=== PATIENT | female | born 1965 | race Caucasian/White ===

== ENCOUNTER 2017-10-14 08:05 | Inpatient (IN) | payer MEDICAID ==
[~2017-10-14] VITALS: Ht 157.5 cm; Wt 48.2 kg
[~2017-10-14 08:05] MED LIST: CEFD300C37 PO
[2017-10-14 08:53] LABS: MEAN CORPUSCULAR HEMOGLOBIN 30.1 pg (27.0-34.8); MEAN CORPUSCULAR HGB CONC 33.6 g/dL (32.4-35.8); MEAN CORPUSCULAR VOLUME 89.7 fL (80-100); MEAN PLATELET VOLUME 8.3 fL (7.4-10.4); PLATELET COUNT 337 x10^3/uL (130-400); RED CELL DISTRIBUTION WIDTH 14.3 % (9.6-15.2)
[2017-10-14] MEDS ORDERED: SODIUM CHLORIDE 0.9% 1,000ML IVBOLUS ONE (09:00)
[2017-10-14 09:06] LABS: ALANINE AMINOTRANSFERASE 15 U/L (12-78); ANION GAP 8 mmol/L (5-15); CALCIUM 8.4 mg/dL (8.5-10.1); CHLORIDE 100 mmol/L (98-107); CREATININE 1.26 mg/dL (0.55-1.02)
[2017-10-14 09:09] LABS: ALKALINE PHOSPHATASE 105 U/L (45-117); BILIRUBIN,TOTAL 0.3 mg/dL (0.2-1.0); TOTAL PROTEIN 8.3 g/dL (6.4-8.2)
[2017-10-14 09:13] LABS: BASOPHILS # (AUTO) 0.08 x10^3/uL (0-0.1); BASOPHILS % (AUTO) 1 % (0-1); EOSINOPHILS # (AUTO) 0.09 x10^3/uL (0-0.4); EOSINOPHILS % (AUTO) 1 % (1-7); LYMPHOCYTES # (AUTO) 2.13 x10^3/uL (1-3.4); LYMPHOCYTES % (AUTO) 13 % (22-44); MD SCAN; MONOCYTES # (AUTO) 1.33 x10^3/uL (0.2-0.8); MONOCYTES % (AUTO) 8 % (2-9); NEUTROPHILS # (AUTO) 12.54 x10^3/uL (1.8-6.8); NEUTROPHILS % (AUTO) 78 % (42-75)
[2017-10-14] MEDS ORDERED: OMNIPAQUE 350 MG/ML, 100ML BOTTLE ONE (10:13)
[2017-10-14] MEDS ORDERED: ONDANSETRON 2MG/ML, 2ML IVPush PRN (11:00)
[2017-10-14] MEDS ORDERED: ACETAMINOPHEN 325 MG TABLET PO PRN (11:00)
[2017-10-14] MEDS ORDERED: ONDANSETRON ODT 4 MG PO PRN (11:00)
[2017-10-14] MEDS ORDERED: hydrALAzine 20 MG/ML, 1ML IVPush PRN (11:00)
[2017-10-14 11:08] VITALS: BP 146/94
[2017-10-14 13:04] VITALS: BP 139/85
[2017-10-14] MEDS: ENOXAPARIN 40 MG/0.4 ML SQ SCH (15:42)
[2017-10-14] MEDS: SODIUM CHLORIDE 0.9% 1,000 ML IV SCH (15:42)
[2017-10-14] MEDS: METHADONE 10 MG TABLET PO PRN ×2 (15:43→23:08)
[2017-10-14] MEDS: CLINDAMYCIN PMX 900MG/50ML 50 ML IV SCH ×2 (15:43→21:44)
[2017-10-14] MEDS: NICOTINE 21 MG/24 HR PATCH.TD24 TD SCH (15:43)
[2017-10-14 19:38] VITALS: BP 156/92
[2017-10-15] MEDS: SODIUM CHLORIDE 0.9% 1,000 ML IV SCH ×3 (01:13→17:30)
[2017-10-15 02:16] VITALS: BP 162/93
[2017-10-15] MEDS: METHADONE 10 MG TABLET PO PRN ×2 (05:09→20:39)
[2017-10-15 05:24] LABS: MEAN CORPUSCULAR HEMOGLOBIN 30.4 pg (27.0-34.8); MEAN CORPUSCULAR HGB CONC 33.5 g/dL (32.4-35.8); MEAN CORPUSCULAR VOLUME 90.6 fL (80-100); MEAN PLATELET VOLUME 8.1 fL (7.4-10.4); PLATELET COUNT 376 x10^3/uL (130-400); RED BLOOD COUNT 3.96 x10^6/uL (3.82-5.3); RED CELL DISTRIBUTION WIDTH 14.7 % (9.6-15.2)
[2017-10-15 05:37] LABS: ANION GAP 6 mmol/L (5-15); CALCIUM 8.3 mg/dL (8.5-10.1); CHLORIDE 102 mmol/L (98-107)
[2017-10-15 05:41] LABS: ALANINE AMINOTRANSFERASE 11 U/L (12-78); ALBUMIN 2.3 g/dL (3.4-5.0); ALKALINE PHOSPHATASE 83 U/L (45-117); BILIRUBIN,TOTAL 0.4 mg/dL (0.2-1.0); CREATININE 1.01 mg/dL (0.55-1.02); TOTAL PROTEIN 6.9 g/dL (6.4-8.2)
[2017-10-15 06:12] LABS: BASOPHILS # (AUTO) 0.28 x10^3/uL (0-0.1); BASOPHILS % (AUTO) 2 % (0-1); EOSINOPHILS # (AUTO) 0.16 x10^3/uL (0-0.4); EOSINOPHILS % (AUTO) 1 % (1-7); LYMPHOCYTES # (AUTO) 1.98 x10^3/uL (1-3.4); LYMPHOCYTES % (AUTO) 11 % (22-44); MD SCAN; MONOCYTES # (AUTO) 1.45 x10^3/uL (0.2-0.8); MONOCYTES % (AUTO) 8 % (2-9); NEUTROPHILS # (AUTO) 13.91 x10^3/uL (1.8-6.8); NEUTROPHILS % (AUTO) 78 % (42-75)
[2017-10-15 07:40] VITALS: BP 125/75
[2017-10-15] MEDS: CLINDAMYCIN PMX 900MG/50ML 50 ML IV SCH ×2 (08:46→17:30)
[2017-10-15 11:59] VITALS: BP 115/72
[2017-10-15] MEDS: ENOXAPARIN 40 MG/0.4 ML SQ SCH (16:00)
[2017-10-15] MEDS ORDERED: MIDAZOLAM 1 MG/ML, 2ML ONE (19:13)
[2017-10-15] MEDS ORDERED: FENTANYL PF 250 MCG/5ML ONE (19:14)
[2017-10-15] MEDS ORDERED: KETAMINE 10 MG/ML, 20ML ONE (19:24)
[2017-10-15] MEDS ORDERED: DEXAMETHASONE 4 MG/ML, 1ML ONE (19:33)
[2017-10-15] MEDS ORDERED: LIDOCAINE 4%, 4 ML SYR/CANN TP ONE (19:33)
[2017-10-15] MEDS ORDERED: ONDANSETRON 2MG/ML, 2ML ONE (19:33)
[2017-10-15] MEDS ORDERED: PROPOFOL 10 MG/ML, 20ML ONE (19:33)
[2017-10-15] MEDS ORDERED: SUCCINYLCHOLINE 20 MG/ML, 10ML ONE (19:33)
[2017-10-15] MEDS ORDERED: FENTANYL PF 100 MCG/2ML ONE (20:34)
[2017-10-15] MEDS: FENTANYL PF 100 MCG/2ML IV PRN ×2 (20:38→20:42)
[2017-10-15] MEDS ORDERED: MEPERIDINE/PF 25MG/0.5ML IVPush PRN (21:00)
[2017-10-15] MEDS ORDERED: MORPHINE SULFATE 4 MG/ML, 1ML IVPush PRN (21:00)
[2017-10-15] MEDS ORDERED: ACETAMINOPHEN 325 MG TABLET PO PRN (21:00)
[2017-10-15] MEDS ORDERED: HYDROmorphone 1 MG/ML, 1ML IV PRN (21:00)
[2017-10-15] MEDS ORDERED: PROMETHAZINE 25 MG/ML, 1ML IV PRN (21:00)
[2017-10-15] MEDS ORDERED: ONDANSETRON ODT 8 MG PO PRN (21:00)
[2017-10-15] MEDS ORDERED: ONDANSETRON 2MG/ML, 2ML IV PRN (21:00)
[2017-10-15] MEDS ORDERED: OXYcodone 5 MG/5 ML ORAL.SOL UDC PO PRN (21:00)
[2017-10-15 21:03] VITALS: BP 131/87
[2017-10-15] MEDS: NICOTINE 21 MG/24 HR PATCH.TD24 TD SCH (21:20)
[2017-10-16] MEDS: CLINDAMYCIN PMX 900MG/50ML 50 ML IV SCH ×2 (01:08→09:28)
[2017-10-16 01:18] VITALS: BP 107/67
[2017-10-16] MEDS: SODIUM CHLORIDE 0.9% 1,000 ML IV SCH ×3 (04:32→22:28)
[2017-10-16] MEDS: METHADONE 10 MG TABLET PO PRN ×4 (04:32→22:28)
[2017-10-16 06:09] LABS: ALBUMIN 2.2 g/dL (3.4-5.0); ANION GAP 6 mmol/L (5-15); CALCIUM 8.5 mg/dL (8.5-10.1); CHLORIDE 101 mmol/L (98-107); CREATININE 0.97 mg/dL (0.55-1.02)
[2017-10-16 06:12] LABS: MEAN CORPUSCULAR HEMOGLOBIN 30.5 pg (27.0-34.8); MEAN CORPUSCULAR HGB CONC 33.1 g/dL (32.4-35.8); MEAN CORPUSCULAR VOLUME 92.2 fL (80-100); MEAN PLATELET VOLUME 8.2 fL (7.4-10.4); PLATELET COUNT 361 x10^3/uL (130-400); RED BLOOD COUNT 3.87 x10^6/uL (3.82-5.3); RED CELL DISTRIBUTION WIDTH 14.7 % (9.6-15.2)
[2017-10-16 06:41] LABS: BASOPHILS # (AUTO) 0.08 x10^3/uL (0-0.1); BASOPHILS % (AUTO) 0 % (0-1); EOSINOPHILS % (AUTO) 0 % (1-7); LYMPHOCYTES # (AUTO) 1.22 x10^3/uL (1-3.4); LYMPHOCYTES % (AUTO) 6 % (22-44); MD SCAN; MONOCYTES # (AUTO) 1.17 x10^3/uL (0.2-0.8); MONOCYTES % (AUTO) 6 % (2-9); NEUTROPHILS # (AUTO) 17.14 x10^3/uL (1.8-6.8); NEUTROPHILS % (AUTO) 87 % (42-75)
[2017-10-16 07:53] VITALS: BP 118/74
[2017-10-16] MEDS ORDERED: VANCOMYCIN PER PHARMACY MC PRN (11:00)
[2017-10-16] MEDS ORDERED: VANCOMYCIN 900 MG in SODIUM CHLORIDE 0.9% 250 ML IV SCH (11:30)
[2017-10-16] MEDS ORDERED: PHARMACOKINETIC MONITORING MC PRN (11:30)
[2017-10-16 13:37] VITALS: BP 115/71
[2017-10-16] MEDS: ENOXAPARIN 40 MG/0.4 ML SQ SCH (16:26)
[2017-10-16] MEDS: NICOTINE 21 MG/24 HR PATCH.TD24 TD SCH (20:42)
[2017-10-16 20:52] VITALS: BP 116/65
[2017-10-17 00:22] VITALS: BP 140/85
[2017-10-17 05:23] LABS: BASOPHILS # (AUTO) 0.06 x10^3/uL (0-0.1); BASOPHILS % (AUTO) 0 % (0-1); EOSINOPHILS # (AUTO) 0.17 x10^3/uL (0-0.4); EOSINOPHILS % (AUTO) 1 % (1-7); LYMPHOCYTES # (AUTO) 2.43 x10^3/uL (1-3.4); LYMPHOCYTES % (AUTO) 17 % (22-44); MD NO; MEAN CORPUSCULAR HEMOGLOBIN 30.6 pg (27.0-34.8); MEAN CORPUSCULAR HGB CONC 33.5 g/dL (32.4-35.8); MEAN CORPUSCULAR VOLUME 91.6 fL (80-100); MEAN PLATELET VOLUME 8.3 fL (7.4-10.4); MONOCYTES # (AUTO) 1.15 x10^3/uL (0.2-0.8); MONOCYTES % (AUTO) 8 % (2-9); NEUTROPHILS # (AUTO) 10.18 x10^3/uL (1.8-6.8); NEUTROPHILS % (AUTO) 73 % (42-75); PLATELET COUNT 387 x10^3/uL (130-400); RED BLOOD COUNT 3.48 x10^6/uL (3.82-5.3); RED CELL DISTRIBUTION WIDTH 14.7 % (9.6-15.2)
[2017-10-17 05:31] LABS: ALBUMIN 2.2 g/dL (3.4-5.0); ANION GAP 7 mmol/L (5-15); CALCIUM 8.3 mg/dL (8.5-10.1); CHLORIDE 105 mmol/L (98-107); CREATININE 1.03 mg/dL (0.55-1.02)
[2017-10-17] MEDS: SODIUM CHLORIDE 0.9% 1,000 ML IV SCH ×2 (06:22→15:07)
[2017-10-17 07:48] VITALS: BP 135/78
[2017-10-17] MEDS: METHADONE 10 MG TABLET PO PRN ×2 (10:04→21:42)
[2017-10-17 13:18] VITALS: BP 152/88
[2017-10-17] MEDS ORDERED: VANCOMYCIN PMX 1GM/200ML 200 ML IV SCH (15:30)
[2017-10-17] MEDS: ENOXAPARIN 40 MG/0.4 ML SQ SCH (16:06)
[2017-10-17 19:50] VITALS: BP 135/84
[2017-10-17] MEDS: NICOTINE 21 MG/24 HR PATCH.TD24 TD SCH (21:42)
[2017-10-18 01:59] VITALS: BP 138/79
[2017-10-18 07:25] VITALS: BP 137/88
[2017-10-18] MEDS: SODIUM CHLORIDE 0.9% 1,000 ML IV SCH ×4 (07:54→20:50)
[2017-10-18] MEDS: METHADONE 10 MG TABLET PO PRN (11:56)
[2017-10-18] MEDS ORDERED: VANCOMYCIN PER PHARMACY MC PRN (12:30)
[2017-10-18] MEDS: VANCOMYCIN PMX 1GM/200ML 200 ML IV SCH (13:27)
[2017-10-18 13:35] VITALS: BP 116/76
[2017-10-18] MEDS: ENOXAPARIN 40 MG/0.4 ML SQ SCH (16:27)
[2017-10-18 19:03] VITALS: BP 139/86
[2017-10-18] MEDS: NICOTINE 21 MG/24 HR PATCH.TD24 TD SCH (20:50)
[2017-10-19] MEDS: METHADONE 10 MG TABLET PO PRN (00:55)
[2017-10-19] MEDS: VANCOMYCIN PMX 1GM/200ML 200 ML IV SCH (00:55)
[2017-10-19 01:50] VITALS: BP 126/82
[2017-10-19 08:39] VITALS: BP 120/73
[2017-10-19] MEDS ORDERED: LEVO750T26 PO (10:23)
[2017-10-19] MEDS ORDERED: DOXY100C2 PO (10:23)
== END 2017-10-19 12:04 | disposition home or self-care (01) | DRG 853 ==
LOC: ED 09:01 → EDIP 10:14 → 3NE 10:57
PROVIDERS: ADMIT Hospitalist; ATTEND Hospitalist
PROC: 0JBL0ZZ Excision of Right Upper Leg Subcutaneous Tissue and Fascia, Open Approach (ICD-10-PCS; 2017-10-15)
PROC: 0JBM0ZZ Excision of Left Upper Leg Subcutaneous Tissue and Fascia, Open Approach (ICD-10-PCS; principal; 2017-10-15 16:00)
DX: A41.9 Sepsis, unspecified organism (principal); E43 Unspecified severe protein-calorie malnutrition; N17.9 Acute kidney failure, unspecified; L02.415 Cutaneous abscess of right lower limb; F11.20 Opioid dependence, uncomplicated; I50.32 Chronic diastolic (congestive) heart failure; Z68.1 Body mass index [BMI] 19.9 or less, adult; L03.116 Cellulitis of left lower limb; L03.115 Cellulitis of right lower limb; L02.416 Cutaneous abscess of left lower limb; Z88.0 Allergy status to penicillin; Z59.0 Homelessness
CPT/HCPCS: 36415; 72190; 72193; 80048; 80053; 80356; 80361; 82040; 83735; 84100; 85025; 86704; 86705; 86706; 86708; 86709; 86803; 87040; 87070; 87075; 87077; 87147; 87181; 87186; 87205; 87340; 87521; 93306; 96365; 99285; G0378; J1100; J1650; J2250; J2405; J2704; J3010; J3370; Q9967; G0480; J0330; J7030; J7050

== ENCOUNTER 2018-04-03 11:50 | Emergency (ER) | payer MEDICAID ==
[~2018-04-03] VITALS: Ht 157.5 cm; Wt 46.9 kg
[~2018-04-03 11:50] MED LIST changes: +DOXY100C2 PO; +LEVO750T26 PO
[2018-04-03] MEDS ORDERED: CLINDAMYCIN PMX 900MG/50ML 50 ML IV ONE (12:30)
[2018-04-03] MEDS ORDERED: SODIUM CHLORIDE FLUSH 10ML SYR IVF ONE (12:30)
[2018-04-03] MEDS ORDERED: LIDOCAINE-MPF 1%, 5ML INFIL ONE (12:30)
[2018-04-03 13:06] LABS: MEAN CORPUSCULAR HEMOGLOBIN 29.5 pg (27.0-34.8); MEAN CORPUSCULAR HGB CONC 33.6 g/dL (32.4-35.8); MEAN CORPUSCULAR VOLUME 87.9 fL (80-100); MEAN PLATELET VOLUME 8.3 fL (7.4-10.4); PLATELET COUNT 429 x10^3/uL (130-400); RED CELL DISTRIBUTION WIDTH 14.8 % (9.6-15.2)
[2018-04-03 13:13] LABS: ALBUMIN 2.7 g/dL (3.4-5.0); ANION GAP 7 mmol/L (5-15); CALCIUM 8.9 mg/dL (8.5-10.1); CHLORIDE 96 mmol/L (98-107); CREATININE 1.16 mg/dL (0.55-1.02)
[2018-04-03 13:45] LABS: MD YES
[2018-04-03 13:50] LABS: EOS#(MANUAL) 0.18 x10^3/uL (0.0-0.4); EOS% (MANUAL) 1 % (1-7); LYMPH#(MANUAL) 2.16 x10^3/uL (1-3.4); LYMPHS% (MANUAL) 12 % (22-44); MONOS#(MANUAL) 1.62 x10^3/uL (0.3-2.7); MONOS% (MANUAL) 9 % (2-9); SEG#(MANUAL) 14.04 x10^3/uL (1.8-6.8); SEGS% (MANUAL) 78 % (42-75)
[2018-04-03 13:51] LABS: <PLATELET ESTIMATE> INCREASED; ANISOCYTOSIS 1+; LARGE PLATELETS 1+; TOXIC GRAN 1+
--- NOTE | 2018-04-03 14:52 | NUR ---
TO ROOM FROM LOBBY. NAD.
[2018-04-03] MEDS ORDERED: LIDOCAINE 1%-EPI 1:100K, 20ML INFIL ONE (15:00)
[2018-04-03] MEDS ORDERED: LIDOCAINE-MPF 1%, 5ML ONE (15:27)
[2018-04-03] MEDS ORDERED: CLINDAMYCIN 150 MG/ML, 6ML ONE (15:27)
--- NOTE | 2018-04-03 15:37 | NUR ---
GIGI PA AT BEDSIDE PERFORMING I&D.
[2018-04-03 16:52] VITALS: BP 148/87
== END 2018-04-03 16:55 | disposition home or self-care (01) ==
LOC: ED 16:28
DX: L02.414 Cutaneous abscess of left upper limb (principal); F11.20 Opioid dependence, uncomplicated; Z88.0 Allergy status to penicillin
CPT/HCPCS: 10060; 36415; 80048; 82040; 85025; 87040; 96372; 99283

== ENCOUNTER 2018-08-13 18:34 | Emergency (ER) | payer MEDICAID ==
[~2018-08-13] VITALS: Ht 157.5 cm; Wt 45.1 kg
--- NOTE | 2018-08-13 19:39 | NUR ---
PT TO ED FOR BLE CELLULITIS AND RIGHT HIP CELLULITIS. PT STATES SHE WAS ON ABX (SULFAMETHOXAZOLE-TMP DS TABLET, 1 TAB BID FOR 10 DAYS, FIRST FILLED 08/07/2018) AND S/S WERE IMPROVING UNTIL PURSE CONTAINING MEDICATION WAS STOLEN YESTERDAY. PT CONNECTED TO MONITORS. VSS. LABS AND BC X2 DRAWN. AWAITING RESULTS.
[2018-08-13 19:44] VITALS: BP 149/94
[2018-08-13 19:46] LABS: BASOPHILS # (AUTO) 0.03 x10^3/uL (0-0.1); BASOPHILS % (AUTO) 0 % (0-1); EOSINOPHILS # (AUTO) 0.09 x10^3/uL (0-0.4); EOSINOPHILS % (AUTO) 1 % (1-7); LYMPHOCYTES # (AUTO) 2.09 x10^3/uL (1-3.4); LYMPHOCYTES % (AUTO) 19 % (22-44); MD NO; MEAN CORPUSCULAR HEMOGLOBIN 30.1 pg (27.0-34.8); MEAN CORPUSCULAR HGB CONC 33.1 g/dL (32.4-35.8); MEAN CORPUSCULAR VOLUME 90.9 fL (80-100); MONOCYTES # (AUTO) 0.83 x10^3/uL (0.2-0.8); MONOCYTES % (AUTO) 8 % (2-9); NEUTROPHILS # (AUTO) 7.69 x10^3/uL (1.8-6.8); NEUTROPHILS % (AUTO) 72 % (42-75); PLATELET COUNT 397 x10^3/uL (130-400); RED CELL DISTRIBUTION WIDTH 16.1 % (9.6-15.2)
[2018-08-13 20:03] LABS: ALBUMIN 3.3 g/dL (3.4-5.0); ANION GAP 2 mmol/L (5-15); CALCIUM 9.3 mg/dL (8.5-10.1); CHLORIDE 100 mmol/L (98-107)
== END 2018-08-13 21:10 | disposition home or self-care (01) ==
LOC: ED 21:04
DX: L03.116 Cellulitis of left lower limb (principal); F17.200 Nicotine dependence, unspecified, uncomplicated; Z72.9 Problem related to lifestyle, unspecified
CPT/HCPCS: 36415; 80048; 82040; 83605; 85025; 87040; 99283

== ENCOUNTER 2019-11-12 03:44 | Inpatient (IN) | payer MEDICAID ==
[~2019-11-12] VITALS: Ht 157.5 cm; Wt 48.5 kg
[2019-11-12] MEDS ORDERED: SODIUM CHLORIDE 0.9% 1,000ML IVBOLUS ONE (04:00)
[2019-11-12] MEDS ORDERED: MORPHINE SULFATE 4 MG/ML, 1ML IV PRN (04:00)
[2019-11-12] MEDS ORDERED: ONDANSETRON 2MG/ML, 2ML IVPush ONE (04:00)
[2019-11-12] MEDS ORDERED: CLINDAMYCIN PMX 600MG/50ML 50 ML IVPB ONE (04:00)
[2019-11-12] MEDS ORDERED: SODIUM CHLORIDE FLUSH 10ML SYR IVF ONE (04:00)
[2019-11-12] MEDS ORDERED: OXYcodone IR 5MG TABLET PO PRN (04:30)
[2019-11-12] MEDS ORDERED: morphine SULFATE 10 MG/ML, 1ML IVPush PRN (04:30)
[2019-11-12] MEDS ORDERED: PROMETHAZINE 25 MG/ML, 1ML IM PRN (04:30)
[2019-11-12] MEDS ORDERED: DOCUSATE 100 MG CAPSULE PO PRN (04:30)
[2019-11-12] MEDS ORDERED: hydrALAzine 20 MG/ML, 1ML IVPush PRN (04:30)
[2019-11-12] MEDS ORDERED: BISACODYL 10 MG SUPP PR PRN (04:30)
[2019-11-12] MEDS ORDERED: ONDANSETRON ODT 4 MG PO PRN (04:30)
[2019-11-12] MEDS ORDERED: ENOXAPARIN 40 MG/0.4 ML SQ SCH (04:30)
[2019-11-12] MEDS ORDERED: POLYETHYLENE GLYCOL 17 GM PACKET PO PRN (04:30)
[2019-11-12] MEDS ORDERED: ONDANSETRON 2MG/ML, 2ML IVPush PRN (04:30)
--- NOTE | 2019-11-12 04:34 | NUR ---
PT CAME IN FOR LLE WOUND, PT STATES SHE NOTICED IT 4 DAYS AGO AND HAS BEEN GETTING WORSE AND WORSE AND SHE NOTICED THE FLUID DRAINING TODAY. PT STATES 9/10 PAIN, DOZING IN BED, SEEN BY ERP, PLACED ON MONITORS, IV PLACED, BLOOD CULTURES AND LABS DRAWN.
[2019-11-12] MEDS ORDERED: MORPHINE SULFATE 4 MG/ML, 1ML ONE (04:38)
[2019-11-12] MEDS ORDERED: ONDANSETRON 2MG/ML, 2ML ONE (04:38)
[2019-11-12] MEDS ORDERED: CLINDAMYCIN PMX 600MG/50ML 50 ML ONE (04:41)
[2019-11-12 04:51] LABS: MEAN CORPUSCULAR HEMOGLOBIN 27.9 pg (27.0-34.8); MEAN CORPUSCULAR HGB CONC 32.1 g/dL (32.4-35.8); MEAN PLATELET VOLUME 8.4 fL (7.4-10.4); PLATELET COUNT 384 x10^3/uL (130-400); RED BLOOD COUNT 4.32 x10^6/uL (3.82-5.3); RED CELL DISTRIBUTION WIDTH 16.5 % (9.6-15.2)
--- NOTE | 2019-11-12 04:55 | NUR ---
IV ABX HUNG AFTER BLOOD CULTURE WERE TAKEN.
[2019-11-12 04:57] LABS: ALANINE AMINOTRANSFERASE 44 U/L (12-78); ALBUMIN 2.4 g/dL (3.4-5.0); ANION GAP 7 mmol/L (5-15); CALCIUM 8.7 mg/dL (8.5-10.1); CHLORIDE 98 mmol/L (98-107); CREATININE 1.52 mg/dL (0.55-1.02)
[2019-11-12] MEDS ORDERED: LORazepam 1MG TABLET PO PRN ×2 (05:00)
[2019-11-12] MEDS ORDERED: LORazepam 0.5MG TABLET PO PRN (05:00)
[2019-11-12] MEDS ORDERED: LORazepam 2 MG/ML, 1ML IV PRN ×5 (05:00)
[2019-11-12] MEDS ORDERED: CEFTAROLINE 600 MG in SODIUM CHLORIDE 0.9% 100 ML IV SCH (05:00)
[2019-11-12 05:07] LABS: ALKALINE PHOSPHATASE 92 U/L (45-117); BILIRUBIN,TOTAL 0.3 mg/dL (0.2-1.0); FREE T4 (FREE THYROXINE) 1.38 ng/dL (0.76-1.46); TOTAL PROTEIN 9.2 g/dL (6.4-8.2)
[2019-11-12 05:18] LABS: BASOPHILS # (AUTO) 0.04 x10^3/uL (0-0.1); BASOPHILS % (AUTO) 0 % (0-1); EOSINOPHILS # (AUTO) 0.11 x10^3/uL (0-0.4); EOSINOPHILS % (AUTO) 1 % (1-7); LYMPHOCYTES # (AUTO) 1.98 x10^3/uL (1-3.4); LYMPHOCYTES % (AUTO) 15 % (22-44); MD SCAN; MONOCYTES # (AUTO) 1.67 x10^3/uL (0.2-0.8); MONOCYTES % (AUTO) 13 % (2-9); NEUTROPHILS # (AUTO) 9.36 x10^3/uL (1.8-6.8); NEUTROPHILS % (AUTO) 71 % (42-75)
[2019-11-12 05:19] LABS: HCT (SEDRATE) 37.5 % (34.6-47.8)
[2019-11-12 05:35] VITALS: BP 112/74
[2019-11-12] MEDS: SODIUM CHLORIDE 0.9% 1,000 ML IV SCH ×2 (05:47→14:32)
[2019-11-12] MEDS ORDERED: CEFTAROLINE MC SCH (06:00)
[2019-11-12 06:55] VITALS: BP 123/82
[2019-11-12] MEDS ORDERED: ACETAMINOPHEN 325 MG TABLET PO PRN (08:00)
[2019-11-12] MEDS ORDERED: KETOROLAC 30 MG/1 ML IVPush PRN (08:00)
[2019-11-12] MEDS: HEPARIN 5,000 UNITS/ML, 1ML SQ SCH ×2 (09:12→20:40)
[2019-11-12] MEDS: CLINDAMYCIN PMX 300MG/50ML 50 ML IV SCH ×3 (09:13→20:40)
[2019-11-12] MEDS: LACTOBACILLUS CHEW TABLET PO SCH ×3 (09:13→20:40)
[2019-11-12 12:32] VITALS: BP 93/58
[2019-11-12 19:55] VITALS: BP 118/75
[2019-11-13 00:45] VITALS: BP 127/79
[2019-11-13] MEDS: CLINDAMYCIN PMX 300MG/50ML 50 ML IV SCH ×4 (03:10→21:14)
[2019-11-13 06:18] LABS: CHLORIDE 107 mmol/L (98-107)
[2019-11-13 06:27] LABS: ALANINE AMINOTRANSFERASE 30 U/L (12-78); ALBUMIN 1.9 g/dL (3.4-5.0); ALKALINE PHOSPHATASE 111 U/L (45-117); ANION GAP 8 mmol/L (5-15); BILIRUBIN,TOTAL 0.3 mg/dL (0.2-1.0); CALCIUM 8.1 mg/dL (8.5-10.1); CHOL/HDL RATIO 5.8; CHOLESTEROL, TOTAL 98 mg/dL (140-239); HDL CHOL % 17 % (28-40); HDL CHOLESTEROL (DIRECT) 17 mg/dL (40-60); LDL CHOLESTEROL,CALCULATED 58 mg/dL (54-169); LDL/HDL RATIO 3.4 (0.5-3.0); TOTAL PROTEIN 7.7 g/dL (6.4-8.2); TRIGLYCERIDES 115 mg/dL (50-200); VLDL CHOLESTEROL 23 mg/dL (0-25)
[2019-11-13 06:53] VITALS: BP 135/80
[2019-11-13 07:45] LABS: BASOPHILS # (AUTO) 0.03 x10^3/uL (0-0.1); BASOPHILS % (AUTO) 0 % (0-1); EOSINOPHILS % (AUTO) 1 % (1-7); LYMPHOCYTES # (AUTO) 1.73 x10^3/uL (1-3.4); LYMPHOCYTES % (AUTO) 13 % (22-44); MD NO; MEAN CORPUSCULAR HEMOGLOBIN 27.4 pg (27.0-34.8); MEAN CORPUSCULAR HGB CONC 32.2 g/dL (32.4-35.8); MONOCYTES # (AUTO) 1.32 x10^3/uL (0.2-0.8); MONOCYTES % (AUTO) 10 % (2-9); NEUTROPHILS # (AUTO) 9.74 x10^3/uL (1.8-6.8); NEUTROPHILS % (AUTO) 75 % (42-75); PLATELET COUNT 395 x10^3/uL (130-400); RED BLOOD COUNT 4.07 x10^6/uL (3.82-5.3); RED CELL DISTRIBUTION WIDTH 16.5 % (9.6-15.2)
[2019-11-13] MEDS: HEPARIN 5,000 UNITS/ML, 1ML SQ SCH ×2 (08:30→21:00)
[2019-11-13] MEDS: LACTOBACILLUS CHEW TABLET PO SCH ×3 (08:30→21:13)
[2019-11-13] MEDS ORDERED: MUPIROCIN OINT 2%, 1 GM APPL. TP SCH (09:00)
[2019-11-13] MEDS: MUPIROCIN OINT 2%, 22GM TP SCH (11:43)
[2019-11-13 12:33] VITALS: BP 163/93
[2019-11-13] MEDS: OXYcodone IR 5MG TABLET PO PRN (13:43)
[2019-11-13] MEDS: LORazepam 1MG TABLET PO PRN (16:34)
[2019-11-13 19:20] VITALS: BP 163/94
[2019-11-13] MEDS ORDERED: NICOTINE 21 MG/24 HR PATCH.TD24 TD ONE (22:00)
[2019-11-14 01:37] VITALS: BP 148/96
[2019-11-14] MEDS: LORazepam 1MG TABLET PO PRN ×2 (02:38→13:39)
[2019-11-14] MEDS: CLINDAMYCIN PMX 300MG/50ML 50 ML IV SCH (03:41)
[2019-11-14 05:53] LABS: BASOPHILS # (AUTO) 0.06 x10^3/uL (0-0.1); BASOPHILS % (AUTO) 0 % (0-1); EOSINOPHILS # (AUTO) 0.11 x10^3/uL (0-0.4); EOSINOPHILS % (AUTO) 1 % (1-7); LYMPHOCYTES # (AUTO) 2.19 x10^3/uL (1-3.4); LYMPHOCYTES % (AUTO) 16 % (22-44); MD NO; MEAN CORPUSCULAR HEMOGLOBIN 27.7 pg (27.0-34.8); MEAN CORPUSCULAR HGB CONC 32.2 g/dL (32.4-35.8); MEAN PLATELET VOLUME 8.1 fL (7.4-10.4); MONOCYTES # (AUTO) 1.43 x10^3/uL (0.2-0.8); MONOCYTES % (AUTO) 10 % (2-9); NEUTROPHILS # (AUTO) 9.99 x10^3/uL (1.8-6.8); NEUTROPHILS % (AUTO) 73 % (42-75); PLATELET COUNT 460 x10^3/uL (130-400); RED BLOOD COUNT 4.59 x10^6/uL (3.82-5.3); RED CELL DISTRIBUTION WIDTH 16.1 % (9.6-15.2)
[2019-11-14 06:07] LABS: CHLORIDE 97 mmol/L (98-107)
[2019-11-14 06:19] LABS: ANION GAP 11 mmol/L (5-15); CALCIUM 8.7 mg/dL (8.5-10.1); CREATININE 1.06 mg/dL (0.55-1.02)
[2019-11-14] MEDS ORDERED: VANCOMYCIN 1,200 MG in SODIUM CHLORIDE 0.9% 250 ML IV ONE (08:30)
[2019-11-14] MEDS ORDERED: PHARMACOKINETIC MONITORING MC PRN (08:30)
[2019-11-14] MEDS ORDERED: PHARMACOKINETIC CONSULTATION MC ONE (08:30)
[2019-11-14 08:47] VITALS: BP 153/106
[2019-11-14] MEDS: LACTOBACILLUS CHEW TABLET PO SCH ×3 (08:51→20:35)
[2019-11-14] MEDS: AMLODIPINE 5 MG TABLET PO SCH ×2 (08:51→20:35)
[2019-11-14] MEDS: HEPARIN 5,000 UNITS/ML, 1ML SQ SCH ×2 (08:52→20:35)
[2019-11-14] MEDS: VANCOMYCIN PER PHARMACY MC SCH (09:00)
[2019-11-14] MEDS: MUPIROCIN OINT 2%, 22GM TP SCH (09:06)
[2019-11-14 15:22] VITALS: BP 130/89
[2019-11-14 18:23] VITALS: BP 128/90
[2019-11-14] MEDS: VANCOMYCIN PMX 1GM/200ML 200 ML IV SCH (20:35)
[2019-11-14] MEDS: NICOTINE 21 MG/24 HR PATCH.TD24 TD SCH (20:36)
[2019-11-15 01:06] VITALS: BP 108/70
[2019-11-15] MEDS: LORazepam 1MG TABLET PO PRN ×3 (02:25→18:39)
[2019-11-15 05:53] LABS: CREATININE 1.19 mg/dL (0.55-1.02)
[2019-11-15 07:26] VITALS: BP 137/91
[2019-11-15 07:34] LABS: MD YES; MEAN CORPUSCULAR HEMOGLOBIN 27.6 pg (27.0-34.8); MEAN CORPUSCULAR HGB CONC 31.6 g/dL (32.4-35.8); MEAN PLATELET VOLUME 8.6 fL (7.4-10.4); PLATELET COUNT 543 x10^3/uL (130-400); RED BLOOD COUNT 4.73 x10^6/uL (3.82-5.3); RED CELL DISTRIBUTION WIDTH 16.5 % (9.6-15.2)
[2019-11-15 07:40] LABS: BAND#(MANUAL) 0.15 x10^3/uL; BANDS%(MANUAL) 1 % (0-7); EOS#(MANUAL) 0.44 x10^3/uL (0.0-0.4); EOS% (MANUAL) 3 % (1-7); LYMPHS% (MANUAL) 20 % (22-44); METAMYELOCYTES# (MANUAL) 0.29 x10^3/uL (0-0); METAMYELOCYTES% (MANUAL) 2 % (0-1); MONOS#(MANUAL) 1.31 x10^3/uL (0.3-2.7); MONOS% (MANUAL) 9 % (2-9); SEG#(MANUAL) 9.43 x10^3/uL (1.8-6.8); SEGS% (MANUAL) 65 % (42-75)
[2019-11-15 07:42] LABS: <PLATELET ESTIMATE> INCREASED; <PLT MORPHOLOGY> NORMAL PLT MORPH; ANISOCYTOSIS 1+
[2019-11-15] MEDS: AMLODIPINE 5 MG TABLET PO SCH ×2 (07:57→21:36)
[2019-11-15] MEDS: LACTOBACILLUS CHEW TABLET PO SCH ×3 (07:57→20:36)
[2019-11-15] MEDS: HEPARIN 5,000 UNITS/ML, 1ML SQ SCH ×2 (07:57→21:37)
[2019-11-15] MEDS: VANCOMYCIN PMX 1GM/200ML 200 ML IV SCH (08:53)
[2019-11-15] MEDS: MUPIROCIN OINT 2%, 22GM TP SCH (08:57)
[2019-11-15] MEDS: VANCOMYCIN PER PHARMACY MC SCH (09:00)
[2019-11-15] MEDS: LEVOFLOXACIN/PMX 750MG/150ML 150 ML IV SCH (13:16)
[2019-11-15 13:50] VITALS: BP 116/75
[2019-11-15 18:11] VITALS: BP 127/86
[2019-11-15 20:24] VITALS: BP 137/94
[2019-11-15] MEDS: NICOTINE 21 MG/24 HR PATCH.TD24 TD SCH (21:36)
[2019-11-16 02:18] VITALS: BP 133/87
[2019-11-16] MEDS ORDERED: VANCOMYCIN 900 MG in SODIUM CHLORIDE 0.9% 100 ML IV SCH (03:00)
[2019-11-16 04:47] LABS: MEAN CORPUSCULAR HEMOGLOBIN 27.5 pg (27.0-34.8); MEAN CORPUSCULAR HGB CONC 32.1 g/dL (32.4-35.8); MEAN PLATELET VOLUME 7.8 fL (7.4-10.4); PLATELET COUNT 601 x10^3/uL (130-400); RED BLOOD COUNT 4.79 x10^6/uL (3.82-5.3); RED CELL DISTRIBUTION WIDTH 16.3 % (9.6-15.2)
[2019-11-16 04:58] LABS: ANION GAP 8 mmol/L (5-15); CALCIUM 9.3 mg/dL (8.5-10.1); CHLORIDE 103 mmol/L (98-107); CREATININE 1.06 mg/dL (0.55-1.02)
[2019-11-16 05:44] LABS: BASOPHILS # (AUTO) 0.08 x10^3/uL (0-0.1); BASOPHILS % (AUTO) 1 % (0-1); EOSINOPHILS # (AUTO) 0.27 x10^3/uL (0-0.4); EOSINOPHILS % (AUTO) 2 % (1-7); LYMPHOCYTES % (AUTO) 18 % (22-44); MD SCAN; MONOCYTES # (AUTO) 1.58 x10^3/uL (0.2-0.8); MONOCYTES % (AUTO) 10 % (2-9); NEUTROPHILS # (AUTO) 10.47 x10^3/uL (1.8-6.8); NEUTROPHILS % (AUTO) 69 % (42-75)
[2019-11-16 07:46] VITALS: BP 151/103
[2019-11-16] MEDS: HEPARIN 5,000 UNITS/ML, 1ML SQ SCH ×2 (08:43→20:47)
[2019-11-16] MEDS: LACTOBACILLUS CHEW TABLET PO SCH ×3 (08:43→20:47)
[2019-11-16] MEDS: AMLODIPINE 5 MG TABLET PO SCH ×2 (08:43→20:48)
[2019-11-16] MEDS: VANCOMYCIN PER PHARMACY MC SCH (08:44)
[2019-11-16] MEDS: OXYcodone IR 5MG TABLET PO PRN ×2 (08:54→13:28)
[2019-11-16] MEDS: MUPIROCIN OINT 2%, 22GM TP SCH (08:54)
[2019-11-16] MEDS: LEVOFLOXACIN/PMX 750MG/150ML 150 ML IV SCH (13:20)
[2019-11-16 13:30] VITALS: BP 105/74
[2019-11-16 19:33] VITALS: BP 105/68
[2019-11-16] MEDS: NICOTINE 21 MG/24 HR PATCH.TD24 TD SCH (20:47)
[2019-11-17 01:26] VITALS: BP 130/82
[2019-11-17 07:43] VITALS: BP 99/63
[2019-11-17] MEDS ORDERED: VANCOMYCIN PMX 1GM/200ML 200 ML IV SCH (08:00)
[2019-11-17] MEDS: VANCOMYCIN PER PHARMACY MC SCH (09:00)
[2019-11-17] MEDS: MUPIROCIN OINT 2%, 22GM TP SCH (10:13)
[2019-11-17] MEDS: LACTOBACILLUS CHEW TABLET PO SCH ×2 (10:29→16:00)
[2019-11-17] MEDS: AMLODIPINE 5 MG TABLET PO SCH (10:31)
[2019-11-17] MEDS: HEPARIN 5,000 UNITS/ML, 1ML SQ SCH (10:34)
[2019-11-17] MEDS ORDERED: LEVOFLOXACIN 500 MG TABLET PO SCH (11:00)
[2019-11-17] MEDS ORDERED: SULF1TAB24 PO (12:11)
[2019-11-17] MEDS ORDERED: LEVO500T8 PO (12:11)
[2019-11-17] MEDS ORDERED: LEVOFLOXACIN/PMX 500MG/100ML 100 ML IV SCH (13:00)
[2019-11-17 14:10] VITALS: BP 92/60
== END 2019-11-17 16:21 | disposition home or self-care (01) | DRG 871 ==
LOC: ED 04:42 → EDIP 04:45 → 3N 05:24 → DCLOUNGE 11-17 16:13
PROVIDERS: ADMIT Internal Medicine; ATTEND Hospitalist
DX: A41.9 Sepsis, unspecified organism (principal); E43 Unspecified severe protein-calorie malnutrition; N17.0 Acute kidney failure with tubular necrosis; F11.23 Opioid dependence with withdrawal; L03.116 Cellulitis of left lower limb; L97.929 Non-pressure chronic ulcer of unspecified part of left lower leg with unspecified severity; Z68.1 Body mass index [BMI] 19.9 or less, adult; B19.20 Unspecified viral hepatitis C without hepatic coma; F10.10 Alcohol abuse, uncomplicated; F19.10 Other psychoactive substance abuse, uncomplicated; Y90.9 Presence of alcohol in blood, level not specified; F17.210 Nicotine dependence, cigarettes, uncomplicated; I10 Essential (primary) hypertension; Z86.79 Personal history of other diseases of the circulatory system; Z79.899 Other long term (current) drug therapy; Z71.6 Tobacco abuse counseling; Z88.0 Allergy status to penicillin
CPT/HCPCS: 36415; 80048; 80053; 80061; 80074; 80202; 82565; 83036; 83605; 83735; 84145; 84439; 84443; 84520; 85025; 85651; 86140; 87040; 87521; 87806; 96374; 96375; 99285; G0378; J1644; J1650; J1885; J1956; J2405; J3370; G0475; J2060; J2270; J7030; J7050

== ENCOUNTER 2020-03-06 12:43 | Emergency (ER) | payer MEDICAID ==
[~2020-03-06] VITALS: Ht 157.5 cm; Wt 54.6 kg
[~2020-03-06 12:43] MED LIST changes: +LEVO500T8 PO; +SULF1TAB24 PO
[2020-03-06 12:46] VITALS: BP 158/97
--- NOTE | 2020-03-06 13:04 | NUR ---
PT AMBULATORY TO ROOM 6 W/ C/O R EAR PAIN, HEAT, REDNESS, SWELLING. PT STATES SHE HAD AN ABXCESS TO OUTER EAR THAT BURST AND PT HAD ACTIVE DRAINAGE. EAR HAS SINCE GOTTEN REDDER, HOTTER, AND MORE INFLAMED. PT HAS NOT SEEN MD FOR ISSUE AND HAS NOT BEEN RX'D ABX. PT RESTING ON [facility]. KAELYN.
== END 2020-03-06 13:32 | disposition home or self-care (01) ==
LOC: ED 13:25
DX: H60.11 Cellulitis of right external ear (principal); F17.200 Nicotine dependence, unspecified, uncomplicated
CPT/HCPCS: 99283

== ENCOUNTER 2020-07-07 17:05 | Emergency (ER) | payer MEDICAID ==
[~2020-07-07] VITALS: Ht 157.5 cm; Wt 46.7 kg
[~2020-07-07 17:05] MED LIST changes: +SULF-23 PO; -SULF1TAB24 PO
[2020-07-07 18:24] LABS: BASOPHILS % (AUTO) 1 % (0-1); EOSINOPHILS % (AUTO) 1 % (1-7); LYMPHOCYTES % (AUTO) 15 % (22-44); MEAN CORPUSCULAR HEMOGLOBIN 28.7 pg (27.0-34.8); MEAN CORPUSCULAR HGB CONC 32.6 g/dL (32.4-35.8); MEAN PLATELET VOLUME 8.4 fL (7.4-10.4); MONOCYTES % (AUTO) 7 % (2-9); NEUTROPHILS % (AUTO) 77 % (42-75); PLATELET COUNT 338 x10^3/uL (130-400); RED BLOOD COUNT 4.87 x10^6/uL (3.82-5.3); RED CELL DISTRIBUTION WIDTH 15.4 % (9.6-15.2)
[2020-07-07 18:26] LABS: ALBUMIN 3.2 g/dL (3.4-5.0); ANION GAP 4 mmol/L (5-15); CALCIUM 9.3 mg/dL (8.5-10.1); CHLORIDE 101 mmol/L (98-107)
[2020-07-07 18:27] LABS: CREATININE 1.42 mg/dL (0.55-1.02)
[2020-07-07 18:31] LABS: MD NO
[2020-07-07 20:33] VITALS: BP 111/86
--- NOTE | 2020-07-07 20:48 | NUR ---
CALLED TO ROOM, NIL X1 [phone]
--- NOTE | 2020-07-07 21:17 | NUR ---
NIL X 2
--- NOTE | 2020-07-07 21:29 | NUR ---
NIL X 3
== END 2020-07-07 21:32 | disposition left against medical advice (07) ==
LOC: ED 17:35
DX: H60.391 Other infective otitis externa, right ear (principal)
CPT/HCPCS: 36415; 80048; 82040; 85025; 99283